=== PATIENT | male | born 1980 | race Caucasian/White ===

== ENCOUNTER 2019-01-15 10:23 | Emergency (ER) | payer OTHER, SELFPAY ==
[2019-01-15 10:57] VITALS: BP 131/86; PULSE 52; RESP 16; TEMP 36.2; O2SAT 99
--- NOTE | 2019-01-15 10:57 | DI.RAD_ITS ---
SYMPTOM/DIAGNOSIS: PAIN RIGHT SHOULDER: Five views were obtained. There is no evidence of a fracture or dislocation.
--- NOTE | 2019-01-15 10:58 | ED.GENADUL_ITS ---
Discharge Plan Disposition Patient Disposition: HOME Condition: Stable Discharge Details Chief Complaint: Orthopedic Clinical Impression: Right shoulder strain Primary Care Provider: Kye Maria ED Provider: Eliecer Monk Home Meds and New Rx's Prescriptions: No Action naproxen 500 MG tablet 500 mg PO BID Qty: 14 RF: 0 Discharge Instructions Instructions: Shoulder Sprain (ED) Additional Instructions: if pain continues in a week see your primary care provider if you have new symptoms such as chest pain or difficulty breathing return to the emergency department Medical Decision Making 38 yo male states at work last night he was tossing a garbage bag with his right arm, and had pain in the right arm. Dneies falls or other trauma .Has pain in anterior right shoulder and pain when abducting and can only abduct to about 90 degrees due to pain. No erythema, no fevers so doubt infected joint. Will xray to eval for fx but likely has a rotator cuff strain xray negative on my read, will d/c and have him f/u with pcp if pain is not improved in a week Differential Diagnosis strain, rotator cuff injury Imaging Data Radiologic Study: Attestation: I personally reviewed and interpreted this imaging study as follows: Imaging: X-Ray My impression: no acute findings HPI General Mode of arrival: ambulatory . Date/Time Provider Initiated Documentation: 01/15/19 10:25 . Limitations to Documentation: no limitations . Information obtained by: patient . History of Present Illness 38 year old M presents to the emergency department with the chief complaint of right shoulder pain, described as moderate, Quality is described as aching, and is localized to the right and upper extremity. Patient reports no radiation. Patient started experiencing this day(s) (1) and it has been constant. No relieving factors improve symptom(s), No exacerbating factors reported . Related Data Home Medications Medication Instructions Recorded Confirmed naproxen 500 mg PO BID #14 tab-cap 07/08/17 01/15/19 Previous Rx's Medication Instructions Recorded naproxen 500 mg PO BID #14 tab-cap 07/08/17 Allergies Allergy/AdvReac Type Severity Reaction Status Date / Time shellfish derived Allergy Severe throat Unverified 01/15/19 10:59 swells, rash, n/v Review of Systems Review of Systems All systems reviewed & are unremarkable except as noted in HPI and below Constitutional Denies chills, Denies fever(s) and Denies weakness Cardiovascular Denies chest pain and Denies dyspnea Respiratory Denies dyspnea Gastrointestinal Denies abdominal pain, Denies nausea and Denies vomiting Musculoskeletal Denies joint swelling Neurologic Denies weakness Endocrine Denies heat intolerance [facility] Surgical History (Updated 03/24/18 @ 14:34 by [employer] [place]) Arthroplasty of knee (11/26/11) Social History Smoking/Tobacco Use Status: Current every day Drug use: Current Sobriety Do you feel safe in your relationship?: Yes Exam Const General: no acute distress Orientation: alert [facility] Head: normal to inspection Ears: external ears normal General nose exam: external nose normal Mouth: moist mucous membranes Eyes General: appearance normal, both eyes and all related structures Neck Neck: normal visual inspection Resp Effort & Inspection: normal respiratory effort and able to speak in complete sentences Cardio Rate: regular rate Skin General skin exam: no rashes or lesions noted Neuro General: alert and oriented x3 Extrem General: normal to inspection Psych Mental Status: mental status grossly normal
[2019-01-15] MEDS: Ibuprofen 600 MG TAB PO (11:19)
--- NOTE | 2019-01-15 13:12 | DI.VRAD_ITS ---
EXAM: XR Right Shoulder EXAM DATE/TIME: 01/15/2019 10:58 AM CLINICAL HISTORY: 38 years old, male; Pain; Shoulder; Right TECHNIQUE: Imaging protocol: XR Right shoulder. Views: 2 or more views. COMPARISON: CR RIGHT SHOULDER COMPLETE 03/07/2014 9:08 PM FINDINGS: Bones/joints: Normal. Soft tissues: Normal. IMPRESSION: No acute findings. Dictated and Authenticated by: Tatyana Salcedo MD. Ordering:SHEELA Gonzáles MD
== END 2019-01-15 12:42 | disposition home or self-care (01) ==
PROVIDERS: Emergency Provider Emergency Medicine; PCP Emergency Medicine
DX: S46.911A Strain of unspecified muscle, fascia and tendon at shoulder and upper arm level, right arm, initial encounter (principal); X50.9XXA Other and unspecified overexertion or strenuous movements or postures, initial encounter; Y99.0 Civilian activity done for income or pay
CPT/HCPCS: 99283; 73030; L3650

== ENCOUNTER 2020-06-29 03:49 | Outpatient (CLI) | payer MEDICAID, SELFPAY ==
--- NOTE | 2020-06-29 07:30 | DI.RAD_ITS ---
EXAM: XR CHEST 2V PA LATERAL CLINICAL HISTORY: weight loss,SMOKER,R63.4 TECHNIQUE: 2D digital imaging was performed. COMPARISON: No exams were available for comparison FINDINGS: MEDIASTINUM: Normal. HEART: Normal. PULMONARY VASCULATURE: Normal. LUNGS: Clear. PLEURAL SPACE: No pleural effusion or pneumothorax. BONE:Within normal limits for the patient's age. OTHER FINDINGS:Normal. IMPRESSION: No acute pulmonary findings. DATA REPOSITORY: RADIATION DOSE DELIVERED:
--- NOTE | 2020-06-29 07:30 | DI.RAD_ITS ---
EXAM: XR KNEE LT 3V AP,LAT,DRISS CLINICAL HISTORY: LT KNEE PAIN, M25.562. TECHNIQUE: 2D digital imaging was performed. COMPARISON: CR XR CHEST 2V PA LATERAL from 06/29/2020 FINDINGS: BONES: No acute fracture is present. No bony destructive lesion is seen. JOINTS: The knee is normally aligned. No joint effusion is seen. Small spurs of the posterior patella . SOFT TISSUE: Normal. IMPRESSION: No acute abnormality. DATA REPOSITORY: RADIATION DOSE DELIVERED:
== END 2020-06-29 04:09 ==
PROVIDERS: PCP Emergency Medicine; Visit Provider Emergency Medicine
DX: M25.562 Pain in left knee (principal); R63.4 Abnormal weight loss; F17.210 Nicotine dependence, cigarettes, uncomplicated
CPT/HCPCS: 73562; 71046

== ENCOUNTER 2020-07-19 09:41 | Emergency (ER) | payer OTHER, SELFPAY ==
[2020-07-19 09:48] VITALS: BP 124/75; PULSE 66; RESP 16; TEMP 36.9; O2SAT 98
--- NOTE | 2020-07-19 10:00 | RT.EKG_ITS ---
APPROVED REPORT Exam: Resting ECG Patient Location: E HR:55 bpm ECG Measurements Heart Rate 55 AXIS OH 137 P 77 QRSd 98 QRS 65 QT 435 T 59 QTc 418 Conclusion Sinus bradycardia.Rate 55 J pt elevation No ST elevation
--- NOTE | 2020-07-19 10:45 | DI.RAD_ITS ---
EXAM: XR SHOULDER LT COMPLETE 2+V CLINICAL HISTORY: pain, working over head. TECHNIQUE: 2D digital imaging was performed. COMPARISON: CR XR shoulder RT complete 2+V from 01/15/2019 FINDINGS: BONES: No acute fracture is present. No bony destructive lesion is seen. No significant degenerative changes. JOINTS: No dislocation present. The AC joint not widened. SOFT TISSUE: Normal. IMPRESSION: Unremarkable radiographs of the right shoulder DATA REPOSITORY: RADIATION DOSE DELIVERED:
--- NOTE | 2020-07-19 11:28 | W.ED.GENAD ---
Discharge Plan Disposition Patient Disposition: HOME Condition: Stable Discharge Details Clinical Impression: Left shoulder pain Primary Care Provider: Kye Maria ED Provider: Blu Diana Home Meds and New Rx's Prescriptions: No Action No Known Home Meds RF: 0 Discharge Instructions Instructions: Shoulder Pain (ED) Additional Instructions: X-ray and EKG are unremarkable. [id number] anti-inflammatory medication as directed. Sling as needed, be sure to do passive range of motion at least 4 times daily like we discussed to avoid a frozen shoulder. Gentle stretching as tolerated. Cool and/or warm compresses every 2 hours for 20 minutes. I will provide you a work note through the . If you feel as though things are not improving with conservative therapy and I do recommend reaching out to orthopedics on Thursday for outpatient reevaluation. Please watch for new or worsening symptoms and return to the ER for any concerns. 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 He denies any obvious trauma. He has no other concerns or complaints, denies chest pain, back pain, shortness of breath, numbness, tingling, weakness. Clinically this appears to be muscular in nature. Given there is no obvious trauma, I believe a screening EKG is reasonable. Again he denies any chest pain, shortness of breath, cardiac history. We will also obtain x-ray for further evaluation. X-ray unremarkable per radiology. EKG does not reveal any obvious STEMI. Discussed findings with patient. His primary concern right now is a work note for the next couple of days. I will provide him a work note until Thursday. Will provide a sling, we discussed passive range of motion to avoid a frozen shoulder. Discussed cool and/or warm compresses as well as [id number] medication. Will give 60 IM Toradol now. We will also provide an orthopedic referral so that he is not significantly improved by Thursday he will call them for outpatient reevaluation. Patient is comfortable with this plan and has no additional questions or concerns. Medical Records Medical records reviewed: Yes I reviewed the patient's medical records. Imaging Data Radiologic Study: Imaging: X-Ray Radiologist's impression: Left shoulder x-ray unremarkable per radiology Lab Data Lab results reviewed: Yes I reviewed the patient's lab results. Labs: Please see official report by Dr. Alonzo. Sinus bradycardia, ventricular rate of 55. J-point elevation, no ST elevation. HPI General Mode of arrival: ambulatory. Date/Time Provider Initiated Documentation: 07/19/20 09:53. Limitations to Documentation: no limitations. Information obtained by: patient. HPI Narrative: This is a 40-year-old gentleman, denies significant past medical history, current smoker, is ambidextrous. He is presenting to the ER today complaining of left shoulder pain. 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 He denies any obvious injury or trauma at the time but since then has had increasing left shoulder pain worse with movement. He did take [id number] Aleve with no significant improvement. He denies any numbness, tingling, weakness. He denies previous injury of that shoulder. Denies headache, neck pain, chest pain, shortness of breath, back pain, radiation of the pain in any direction. He states the pain is moderate at rest, worse with movement. He is able to move his shoulder and all directions but it does increase his discomfort. He states this occurred at work and will need paperwork to keep him out of work for at least the next couple of days. Related Data Home Medications Medication Instructions Recorded Confirmed Unknown [No Known Home Meds] 07/11/20 07/19/20 Allergies Allergy/AdvReac Type Severity Reaction Status Date / Time shellfish derived Allergy Severe throat Unverified 07/19/20 09:52 swells, rash, n/v General Stated Complaint: Orthopedic RENETTA: 4 Review of Systems Constitutional Constitutional: Denies fatigue, Denies fever(s), Denies headache(s) and Denies weakness ENT Ears, Nose, Mouth, and Throat: Denies headache(s) and Denies neck pain Cardiovascular Cardiovascular: Denies chest pain and Denies dyspnea Respiratory Respiratory: Denies cough and Denies dyspnea Gastrointestinal Gastrointestinal: Denies abdominal pain Musculoskeletal Musculoskeletal: Denies back pain, Denies neck pain, Denies numbness, Reports stiffness and Denies tingling Integumentary/Breasts Skin/Breast: Denies erythema Neurologic Neurologic: Denies headache(s), Denies numbness, Denies tingling and Denies weakness Endocrine Endocrine: Denies fatigue [facility] Medical History Bilateral knee pain Depression Weight loss, abnormal Surgical History Arthroplasty of knee (11/26/11) left knee w/ limited synovectomy, debridement ACL, lateral retinacular release. Social History Smoking/Tobacco Use Status: Current every day Tobacco Type: cigarettes Smoking risk assessment performed?: Yes Alcohol Intake: never Drug use: Daily Substance use type: marijuana Do you feel safe in your relationship?: Yes Exam Const General: cooperative, healthy appearing, comfortable and no acute distress Orientation: alert, awake and oriented x3 HENMT Head: normal to inspection, normocephalic and atraumatic Eyes General: appearance normal, both eyes and all related structures Conjunctivae: conjunctivae normal Sclera: sclerae normal Neck Neck: normal visual inspection, full ROM, no meningeal signs, trachea midline, supple and nontender Chest Chest: normal inspection of the chest and normal palpation of entire chest wall Resp Effort & Inspection: normal respiratory effort and able to speak in complete sentences Auscultation: clear to auscultation bilaterally Cardio Rate: bradycardic (58) Rhythm: regular rhythm GI Palpation: soft and nontender Back/Spine/Pelvis Back: No back tenderness Skin General skin exam: no rashes or lesions noted Neuro General: patient alert, patient awake, moves all extremities and no focal motor deficits Cognition: normal cognition Speech: speech normal Gait: normal gait Motor: muscle tone normal throughout and strength 5/5 throughout Sensory Exam: no sensory deficits noted Extrem General: normal to inspection, full ROM and capillary refill normal Left upper extremity: normal to inspection, full ROM, normal capillary refill, shoulder/upper arm Details: inspection abnormal, tenderness (Diffuse anterior and superior), axillary nerve sensory function normal and normal ROM; no swelling, no ecchymosis and no crepitus and elbow/forearm Details: normal to inspection, normal ROM and distal pulses intact; no tenderness and no swelling Psych Appearance: grossly normal Mental Status: mental status grossly normal Course Vital Signs Vital signs: Vital Signs Temperature 36.9 C 07/19/20 09:48 Pulse 66 07/19/20 09:48 Respiratory Rate 16 07/19/20 09:48 Blood Pressure 124/75 07/19/20 09:48 Pulse Oximetry 98 07/19/20 09:48 Temperature 36.9 C 07/19/20 09:48 Temperature Source Skin 07/19/20 09:48 Pulse 66 07/19/20 09:48 Respiratory Rate 16 07/19/20 09:48 Respiratory Effort Non-Labored 07/19/20 09:48 Blood Pressure 124/75 07/19/20 09:48 Blood Pressure Position Sitting 07/19/20 09:48 Pulse Oximetry 98 07/19/20 09:48 Oxygen Delivery Method Room Air 07/19/20 09:48 Oxygen Flow Rate 0 07/19/20 09:48 Pain Level 10 07/19/20 10:29
[2020-07-19] MEDS: Ketorolac 60 MG/2 ML VIAL IM (11:50)
== END 2020-07-19 12:01 | disposition home or self-care (01) ==
PROVIDERS: Emergency Provider Physician Assistant; PCP Emergency Medicine
DX: M25.512 Pain in left shoulder (principal); X50.3XXA Overexertion from repetitive movements, initial encounter
CPT/HCPCS: 93005; 99284; 73030; 93010; J1885